=== PATIENT | female | born 1975 | race Native Hawaiian/Other Pacific Islander ===

== ENCOUNTER 2018-07-30 14:38 | Emergency (ER) | payer OTHER ==
[2018-07-30 14:38] VITALS: BMI 24.7
[2018-07-30 14:43] VITALS: RESP 18; O2SAT 100
--- NOTE | 2018-07-30 15:06 | ED PDOC ---
HPI: Female Pain Chief Complaint (Provider): Vaginal bleeding Additional History Per: Patient Additional Complaint(s): This is 43 y/o F, , GA 10+ weeks by her LMP, comes to the ER c/o 2 days history of light vaginal bleeding. Patient reports vaginal cramping with bleeding, but denies any dysuria, diarrhea, fever or weakness. Patient reports no trauma or intercourse in last one week. PMH: Denies PSH: denies Allg: NKDA Meds: PNV FH: Denies SH: Denies alcohol, smoking or drug use <Kristal Jaramillo - Last Filed: 07/30/18 17:13> <Raissa Lamar - Last Filed: 07/30/18 21:04> Time Seen by Provider: 07/30/18 14:45 Chief Complaint (Nursing): Female Genitourinary Supervising Attending Note - Supervising Attending Note The Documented history was done by the: Physician Magnetic Resonance Imaging Coordinator - Attestation: I have personally seen and examined this patient.: Yes I have fully participated in the care of the patient.: Yes I have reviewed all pertinent clinical information, including history, physical exam and plan: Yes <Raissa Lamar - Last Filed: 07/30/18 21:04> Past Medical History Vital Signs: Last Vital Signs Temp 98 F 07/30/18 14:41 Pulse 68 07/30/18 14:41 Resp 18 07/30/18 14:41 BP 113/55 L 07/30/18 14:41 Pulse Ox 100 07/30/18 14:41 - Family History Family History: States: No Known Family Hx <Kristal Jaramillo - Last Filed: 07/30/18 17:13> Vital Signs: Last Vital Signs Temp 98.6 F 07/30/18 17:00 Pulse 69 07/30/18 17:00 Resp 18 07/30/18 17:00 BP 109/72 07/30/18 17:00 Pulse Ox 100 07/30/18 17:14 <Raissa Lamar - Last Filed: 07/30/18 21:04> - Home Medications Home Medications: Ambulatory Orders Medication Instructions Recorded RX: No Known Home Med 11/24/16 - Allergies Allergies/Adverse Reactions: Allergies Allergy/AdvReac Type Severity Reaction Status Date / Time No Known Allergies Allergy Verified 07/30/18 14:40 Review of Systems Constitutional: Negative for: Fever Eyes: Negative for: Pain ENT: Negative for: Ear Pain, Nose Pain Cardiovascular: Negative for: Chest Pain, Palpitations, Orthopnea Respiratory: Negative for: Cough, Shortness of Breath, Hemoptysis Gastrointestinal: Positive for: Nausea. Negative for: Vomiting, Abdominal Pain, Diarrhea, Constipation, Rectal Pain Genitourinary Female: Positive for: Vaginal Bleeding. Negative for: Dysuria, Frequency, Hematuria Musculoskeletal: Negative for: Neck Pain Skin: Negative for: Rash Neurological: Negative for: Weakness, Numbness, Incoordination Psych: Negative for: Anxiety <Kristal Jaramillo - Last Filed: 07/30/18 17:13> Physical Exam - Physical Exam Appears: Positive for: No Acute Distress Head Exam: Positive for: NORMAL INSPECTION Skin: Positive for: Normal Color, Warm, Dry Eye Exam: Positive for: Normal appearance, EOMI, PERRL ENT: Positive for: Normal ENT Inspection Neck: Positive for: Normal, Painless ROM. Negative for: Supple, Decreased ROM Cardiovascular/Chest: Positive for: Regular Rate, Rhythm. Negative for: Chest Non Tender, Edema Respiratory: Positive for: Normal Breath Sounds. Negative for: Decreased Breath Sounds, Accessory Muscle Use, Crackles Gastrointestinal/Abdominal: Positive for: Normal Exam, Bowel Sounds, Soft. Negative for: Tenderness, Mass, Distended, Guarding Pelvic Exam: Positive for: External Exam Normal (Speculum Exam: Light fresh bleeding and clotes seen, closed cevix ) Back: Positive for: Normal Inspection. Negative for: L CVA Tenderness, R CVA Tenderness Extremity: Positive for: Normal ROM. Negative for: Tenderness, Pedal Edema Lymphatic: Negative for: Adenopathy Neurologic/Psych: Positive for: Alert, client manager II-XII, Oriented. Negative for: Motor/Sensory Deficits <Kristal Jaramillo - Last Filed: 07/30/18 17:13> - Laboratory Results Result Diagrams: 07/30/18 15:25 - ECG O2 Sat by Pulse Oximetry: 100 - Progress ED Course And Treament: A/P: 46 y/o F with + and 10+ GA comes to ER for evaluation and treatment of 2 days hx of light vaginal bleeding. - CBC - UA - Urine - TV/Pelvic u/s - Reexamination Case discussed with Dr. Lamar CBC: wnl U preg: +, 6200 bHCG TV u/s: finding suggestive of failure Patient was informed and educated about findings ER precautions discussed with patient OB, dr. white made aware and follow up with patient on 08/02/18 at his office, agrees with d/c and home/bed rest Patient agrees with discharge plan Re-evaluation Time: 17:09 Condition: Re-examined <Kristal Jaramillo - Last Filed: 07/30/18 17:13> - Laboratory Results Result Diagrams: 07/30/18 15:25 Lab Results: Beta HCG, Quant 6216.50 mIU/mL 07/30/18 15:25 <Raissa Lamar - Last Filed: 07/30/18 21:04> Medical Decision Making Medical Decision Making: threatened / failure <Kristal Jaramillo - Last Filed: 07/30/18 17:13> Disposition - Patient ED Disposition Is Patient to be Admitted: No - Disposition Disposition: Routine/Home Disposition Time: 16:58 <Kristal Jaramillo - Last Filed: 07/30/18 17:13> <Raissa Lamar - Last Filed: 07/30/18 21:04> - Clinical Impression Clinical Impression: Threatened affecting intrauterine , Miscarriage - Disposition Referrals: Nomi White MD [Staff Provider] - Condition: STABLE Additional Instructions: F/u with OB on Thursday08/02/18 Home/bed rest discussed with patient ER precautions discussed with patient Instructions: Miscarriage, Threatened Miscarriage (DC), Bleeding With (DC) Forms: [email or web address] (Vietnamese) Print Language: CAP[place]AN
[2018-07-30 15:41] LABS: BASO # 0.1 K/uL (0.0-0.2); BASO % 0.9 % (0.0-2.0); EOS # 0.2 K/uL (0.0-0.7); EOS % 3.6 % (0.0-4.0); HEMOGLOBIN 12.6 g/dL (12.0-16.0); LYMPH # 1.9 K/uL (1.0-4.3); MEAN CELL VOLUME 88.5 fl (81.0-99.0); MEAN CORPUSCULAR HEMOGLOBIN 29.7 pg (27.0-31.0); MEAN CORPUSCULAR HGB CONC 33.6 g/dL (33.0-37.0); MEAN PLATELET VOLUME 7.3 fl (7.2-11.7); MONO # 0.5 K/uL (0.0-0.8); MONO % 8.5 % (0.0-10.0); NEUT # 3.6 K/uL (1.8-7.0); RBC 4.23 Mil/uL (3.80-5.20); RED CELL DISTRIBUTION WIDTH 13.7 % (11.5-14.5); WHITE BLOOD COUNT 6.3 K/uL (4.8-10.8)
--- NOTE | 2018-07-30 16:08 | US ---
Date of service: 07/30/2018 PROCEDURE: OB Pelvic Ultrasound HISTORY: vag bleed preg r/o ectopic v threatened LMP: 05/14/2018 COMPARISON: None available. FINDINGS: UTERUS: Gestational sac: Single intrauterine gestation. Measures 3.3 cm compatible with estimated gestational age of 8 weeks, 2 days Yolk sac: Not visualized pole: [place]-rump length measures 1.6 cm compatible with estimated gestational age of 8 weeks, 0 days. Heart rate: Not identified. age (Ultrasound estimated): 8 weeks, 1 day Emperatriz-gestational hemorrhage: None. Date of delivery (Ultrasound estimated) : 03/10/2019 Uterus measures 10.2 x 5.9 x 7.6 cm. Normal in size and appearance. Intramural fibroid measuring 3.4 x 2.7 x 4.3 cm. CERVIX: Measures 3.4 cm. Long and closed. No cervical abnormality seen. 5 mm nabothian cyst. RIGHT OVARY: Measures 2.3 x 1.4 x 2.2 cm. Corpus luteal cyst measuring 1.6 x 1.0 x 2.2 cm. Normal flow. LEFT OVARY: Measures 1.8 x 0.8 x 1.4 cm. No solid mass. Normal flow. FREE FLUID: None. OTHER FINDINGS: None. IMPRESSION: Intrauterine gestation with average ultrasound age of 8 weeks, 1 day. Yolk sac and heart rate not identified. Given size and absence of cardiac activity, findings are suggestive of failure. Close clinical follow-up and repeat short interval pelvic ultrasound are recommended for confirmation.
[2018-07-30 17:36] VITALS: BP 109/72; PULSE 69; TEMP 98.6
== END 2018-07-30 17:15 | disposition home or self-care (01) ==
LOC: H.ER 14:38
DX: O03.9 Complete or unspecified spontaneous abortion without complication (principal); Z3A.10 10 weeks gestation of pregnancy